=== PATIENT | male | born 1950 | race Caucasian/White ===

== ENCOUNTER 2018-02-26 06:00 | Day surgery (SDC) | payer OTHER | END 2018-02-26 10:40 | disposition home or self-care (01) | LOC: AMB-ENDOS 06:00 | DX: C19 Malignant neoplasm of rectosigmoid junction (principal) ==

== ENCOUNTER 2018-06-21 11:15 | Inpatient (IN) | payer OTHER ==
[~2018-06-21] VITALS: Ht 167.6 cm; Wt 69.4 kg
== END 2018-07-04 18:52 | disposition home or self-care (01) | DRG 330 ==
LOC: ADM 11:15 → EDSTATUS 11:15 → SURH 06-26 05:54 → O/R 06-26 05:54 → SURH 06-26 07:00 → SURG 06-26 17:28 → SURH 06-26 20:05
PROVIDERS: Urology; ADMIT Surgery
PROC: 0WQF0ZZ Repair Abdominal Wall, Open Approach (ICD-10-PCS; 2018-06-26)
PROC: 0TN60ZZ Release Right Ureter, Open Approach (ICD-10-PCS; 2018-06-26)
PROC: 0DQN0ZZ Repair Sigmoid Colon, Open Approach (ICD-10-PCS; 2018-06-26)
PROC: 0DTJ0ZZ Resection of Appendix, Open Approach (ICD-10-PCS; 2018-06-26)
PROC: 0TQB0ZZ Repair Bladder, Open Approach (ICD-10-PCS; 2018-06-26)
PROC: 0TQ60ZZ Repair Right Ureter, Open Approach (ICD-10-PCS; 2018-06-26)
PROC: 0DJD8ZZ Inspection of Lower Intestinal Tract, Via Natural or Artificial Opening Endoscopic (ICD-10-PCS; 2018-06-26)
PROC: 0T768DZ Dilation of Right Ureter with Intraluminal Device, Via Natural or Artificial Opening Endoscopic (ICD-10-PCS; 2018-06-26)
PROC: 0DTN0ZZ Resection of Sigmoid Colon, Open Approach (ICD-10-PCS; principal; 2018-06-26 07:00)
PROC: 0D1B0Z4 Bypass Ileum to Cutaneous, Open Approach (ICD-10-PCS; 2018-06-26 07:00)
DX: Z43.3 Encounter for attention to colostomy (principal); N99.72 Accidental puncture and laceration of a genitourinary system organ or structure during other procedure; K35.890 Other acute appendicitis without perforation or gangrene; C19 Malignant neoplasm of rectosigmoid junction; K43.9 Ventral hernia without obstruction or gangrene; K66.0 Peritoneal adhesions (postprocedural) (postinfection); E83.42 Hypomagnesemia; F41.8 Other specified anxiety disorders; I10 Essential (primary) hypertension

== ENCOUNTER 2018-10-11 11:53 | Inpatient (IN) | payer OTHER ==
[~2018-10-11] VITALS: Ht 167.6 cm; Wt 66.7 kg
[2018-11-16] MEDS ORDERED: TYLENOL EXTRA500 MG PO (10:00)
[2018-11-16] MEDS ORDERED: INTESTINEX680 M1 PO (10:00)
== END 2018-11-16 12:36 | disposition home or self-care (01) | DRG 330 ==
LOC: SURG 10-29 11:30 → O/R 11-06 05:42 → SURG 11-06 05:42
PROVIDERS: ADMIT Surgery
PROC: 0DQB4ZZ Repair Ileum, Percutaneous Endoscopic Approach (ICD-10-PCS; principal; 2018-11-06 07:00)
PROC: BW21ZZZ Computerized Tomography (CT Scan) of Abdomen and Pelvis (ICD-10-PCS; 2018-11-13)
DX: Z43.2 Encounter for attention to ileostomy (principal); C20 Malignant neoplasm of rectum; K91.89 Other postprocedural complications and disorders of digestive system; K56.7 Ileus, unspecified; I10 Essential (primary) hypertension; F41.8 Other specified anxiety disorders; E83.42 Hypomagnesemia

== ENCOUNTER 2018-11-18 14:45 | Inpatient (IN) | payer OTHER ==
[~2018-11-18] VITALS: Ht 167.6 cm; Wt 66.7 kg
[~2018-11-18 14:45] MED LIST: INTESTINEX680 M1 PO; TYLENOL EXTRA500 MG PO
--- NOTE | 2018-11-18 15:12 | NUR ---
SE RECIBE PTE. MASCULINO EN COMPANIA DE [facility] PTE. ALERTA CONCIENTE Y ORIENTADO REFIERE FUE DADO DE SEBASTIAN [facility] Y NO KWAN EVACUADO DESDE QUE [facility] REFIERE VOMITOS X 5 DOLOR ABDOMINAL PORQUE TIENE MUCHOS GASES. SE PASA A AREA DE OBSERVAACION.
--- NOTE | 2018-11-18 15:38 | NUR ---
EVALUA PTE. SE ORIENTA A PTE Y FAMILIAR SOBRE TX MEDICO. PTE Y FAMILIAR REFIEREN COMPRENDER. SE COLECTAN MUESTRAS DE LABORATORIO BAJO MEDIDAS ASEPTICAS. SE ADMINISTRAN MEDICAMENTOS SASHA ORDEN MEDICA. PROCEDIMIENTOS LLEVADOS A CABO POR .
--- NOTE | 2018-11-18 22:40 | NUR ---
SE ORIENTA PTE SOBRE INSERCION DE NGT EL CUAL SE REALIZO POR KRYSTLE RT.
--- NOTE | 2018-11-18 23:38 | NUR ---
SE RECIBE PTE MASCULINO DE 68 YS ALERTA CONCIENTE Y TRANQUILO EN COMPANIA DE FAMILIAR. PTE SE MANTIENE EN CAMA EN LA UNIDAD DE SEC-K PTE CONSULTADO CON EL RAJWINDER SIMMONS. SE MANTIENE BAJO OBSERVACION.
--- NOTE | 2018-11-19 07:15 | NUR ---
SE RECIBE PTE EL CUAL SE ENCUENTRA EN CAMA, ACOMPANADO POR FAMILIAR EL MISMO SE ENCUENTRA EN CAMA, CON BARANDAS ELEVADAS. PTE PRESENTA AREA DE VENOPUNCION PATENTE CON IV FLUID, SE OBSERVA NGT EN FOSA NASAL DERECHA EL CUAL SE ENCUENTRA PATENTE TO LIST CON FLUIDOS COLOR CREMA. SE ENCUENTRA PTE PEND A CONSULTA CON DR. VASQUEZ.
[2018-12-12] MEDS ORDERED: INTESTINEX680 M1 PO (09:25)
[2018-12-12] MEDS ORDERED: TYLENOL EXTRA500 MG PO (09:25)
== END 2018-12-12 10:49 | disposition home or self-care (01) | DRG 330 ==
LOC: ER 14:45 → SURH 11-19 07:31
PROVIDERS: ADMIT Surgery
PROC: 02HV33Z Insertion of Infusion Device into Superior Vena Cava, Percutaneous Approach (ICD-10-PCS; 2018-11-19)
PROC: BW21ZZZ Computerized Tomography (CT Scan) of Abdomen and Pelvis (ICD-10-PCS; 2018-11-26)
PROC: 0DNW0ZZ Release Peritoneum, Open Approach (ICD-10-PCS; 2018-12-04)
PROC: 0DTP0ZZ Resection of Rectum, Open Approach (ICD-10-PCS; 2018-12-04)
PROC: 0DJD0ZZ Inspection of Lower Intestinal Tract, Open Approach (ICD-10-PCS; 2018-12-04)
PROC: 0DQP0ZZ Repair Rectum, Open Approach (ICD-10-PCS; principal; 2018-12-04 10:00)
DX: K56.690 Other partial intestinal obstruction (principal); C19 Malignant neoplasm of rectosigmoid junction; K62.5 Hemorrhage of anus and rectum; K91.71 Accidental puncture and laceration of a digestive system organ or structure during a digestive system procedure; K66.0 Peritoneal adhesions (postprocedural) (postinfection); E03.8 Other specified hypothyroidism; R59.0 Localized enlarged lymph nodes; E83.42 Hypomagnesemia; I10 Essential (primary) hypertension; F41.8 Other specified anxiety disorders; Z93.2 Ileostomy status; Z53.31 Laparoscopic surgical procedure converted to open procedure; Z93.3 Colostomy status; Z92.21 Personal history of antineoplastic chemotherapy

== ENCOUNTER 2019-07-29 09:18 | Day surgery (SDC) | payer OTHER | END 2019-07-29 13:50 | disposition home or self-care (01) | LOC: AMB-ENDOS 09:18 | DX: K51.40 Inflammatory polyps of colon without complications (principal) ==